=== PATIENT | female | born 1975 ===

== ENCOUNTER 2019-01-08 10:33 | Emergency (ER) | payer BC ==
[2019-01-08 10:38] VITALS: O2SAT 100
[2019-01-08 10:39] VITALS: BMI 27.4
--- NOTE | 2019-01-08 11:57 | ED PDOC ---
HPI: General Adult Time Seen by Provider: 01/08/19 11:02 Chief Complaint (Nursing): GI Problem History Per: Patient Additional Complaint(s): Pt. states yesterday she drank an herbal tea called Curt (Oral Hanna) to help her lose weight. States shortly afterwards she had multiple episodes of watery diarrhea then her last BM she experienced pain and then she noticed her stools contained bright red blood. She did not have any more BM's until today and stools have remained bloody. Reports pain is localized to the rectal area. Denies abdominal pain, hx of GI bleed, fever, chills, weakness, hx of anemia, previous blood transfusions. Of note, pt. states she has taken this tea in the past which only resulted in diarrhea but never pain or bleeding. PMD: Blanca Past Medical History Reviewed: Historical Data, Nursing Documentation, Vital Signs Vital Signs: Last Vital Signs Temp 98.1 F 01/08/19 10:37 Pulse 72 01/08/19 10:37 Resp 17 01/08/19 10:37 BP 100/67 01/08/19 10:37 Pulse Ox 100 01/08/19 10:37 - Medical History PMH: Rheumatoid Arthritis Denies: Chronic Kidney Disease - Surgical History Surgical History: No Surg Hx - Family History Family History: States: No Known Family Hx - Allergies Allergies/Adverse Reactions: Allergies Allergy/AdvReac Type Severity Reaction Status Date / Time No Known Allergies Allergy Verified 01/08/19 10:52 Review of Systems ROS Statement: Except As Marked, All Systems Reviewed And Found Negative Gastrointestinal: Positive for: Diarrhea, Hematochezia, Rectal Pain Physical Exam - Physical Exam Appears: Positive for: Well, Non-toxic, No Acute Distress Skin: Positive for: Normal Color, Warm. Negative for: Rash Eye Exam: Positive for: Normal appearance Cardiovascular/Chest: Positive for: Regular Rate, Rhythm Respiratory: Positive for: Normal Breath Sounds Gastrointestinal/Abdominal: Positive for: Normal Exam, Soft. Negative for: Tenderness Rectal: Positive for: Rectal Tone Is: (intact), Other (No fissures; Leonela MCKEON present during both rectal exams (initial stool sample was insufficient therefore a second exam was done)). Negative for: Blood Streaked Stool, Hemorrhoids, Tenderness Neurological/Psych: Positive for: Awake, Alert, Oriented (x3) - Laboratory Results Result Diagrams: 01/08/19 12:00 01/08/19 12:00 - ECG O2 Sat by Pulse Oximetry: 100 - Progress ED Course And Treament: Labs ordered. Re-evaluation Time: 15:00 (Reports no diarrhea or bleeding while in ED. Informed of all results. Advised to no longer take tea but is to f/u with GI for further evaluaiton and return to ED immediately if symptoms return.) Condition: Re-examined, Improved Disposition - Clinical Impression Clinical Impression: Bloody stools - Patient ED Disposition Is Patient to be Admitted: No - Disposition Referrals: Sinan Barclay MD [Staff Provider] - Disposition: Routine/Home Disposition Time: 15:11 Condition: STABLE Additional Instructions: FOLLOW UP WITH YOUR DOCTOR FOR FURTHER EVALUATION RETURN TO ED IMMEDIATELY IF SYMPTOMS WORSEN KATHRYN LAU, thank you for letting us take care of you today. Your provider was Ashkan Avalos MD and you were treated for RECTAL BLEEDING, BACK PAIN. The emergency medical care you received today was directed at your acute symptoms. If you were prescribed any medication, please fill it and take as directed. It may take several days for your symptoms to resolve. Return to the Emergency Department if your symptoms worsen, do not improve, or if you have any other problems. Please contact your doctor or call one of the physicians/clinics you have been referred to that are listed on the Patient Visit Information form that is included in your discharge packet. Bring any paperwork you were given at discharge with you along with any medications you are taking to your follow up visit. Our treatment cannot replace ongoing medical care by a primary care provider outside of the emergency department. Thank you for allowing the [facility] team to be part of your care today. If you had an X-Ray or CT scan: A Radiologist will review the ED reading if any change in treatment is needed we will contact you. If you had a blood, urine, or wound culture: It will take several days for the results, if any change in treatment is needed we will contact you. If you had an STI test: It will take 48 hours for the results. Please call after 1 week if you have not heard back. Instructions: Bloody Stools, Adult (DC) Forms: [employer] (Malaysian), [facility] ED School/Work Excuse Print Language: SPANISH
[2019-01-08 12:17] LABS: BASO % 0.6 % (0.0-2.0); EOS # 0.2 K/uL (0.0-0.7); EOS % 3.3 % (0.0-4.0); HEMOGLOBIN 12.6 g/dL (12.0-16.0); LYMPH % 30.1 % (20.0-40.0); MEAN CELL VOLUME 90.8 fl (81.0-99.0); MEAN CORPUSCULAR HEMOGLOBIN 30.4 pg (27.0-31.0); MEAN CORPUSCULAR HGB CONC 33.5 g/dL (33.0-37.0); MEAN PLATELET VOLUME 7.9 fl (7.2-11.7); MONO # 0.5 K/uL (0.0-0.8); MONO % 6.9 % (0.0-10.0); NEUT # 3.9 K/uL (1.8-7.0); NEUT % 59.1 % (50.0-75.0); NRBC % 0.2 % (0.0-0.0); RBC 4.15 Mil/uL (3.80-5.20); WHITE BLOOD COUNT 6.7 K/uL (4.8-10.8)
[2019-01-08 12:25] LABS: ALB/GLOB RATIO 1.4 (1.0-2.1); ALBUMIN 4.1 g/dL (3.5-5.0); ALT/SGPT 21 U/L (9-52); AST/SGOT 20 U/L (14-36); BLOOD UREA NITROGEN 17 mg/dl (7-17); GFR NON-AFRICAN AMERICAN > 60
[2019-01-08 12:29] LABS: INR 1.1; PROTHROMBIN TIME 12.2 Seconds (9.8-13.1)
[2019-01-08 12:32] LABS: PARTIAL THROMBOPLASTIN TIME 29.4 Seconds (25.6-37.1)
[2019-01-08 16:11] VITALS: BP 110/71; PULSE 69; RESP 18; TEMP 98.5
== END 2019-01-08 16:09 | disposition home or self-care (01) ==
LOC: H.ER 10:33
DX: K92.1 Melena (principal)
CPT/HCPCS: 80053; 81025; 85025; 85610; 85730; 86850; 86900; 99285; G0328